=== PATIENT | female | born 1990 | race Caucasian/White ===

== ENCOUNTER 2018-11-23 21:06 | Inpatient (IN) | payer BC ==
[2018-11-23] MEDS ORDERED: Bupivacaine 0.25% 10 ML SDV ONE (22:00)
[2018-11-23] MEDS ORDERED: diphenhydrAMINE 50 MG/ML SDV IVPUSH PRN (22:24)
[2018-11-23] MEDS ORDERED: fentaNYL/Bupivacaine-NS 2 MCG/ML-0.125%/PF 100 ML Bag EPIDUR PRN (22:24)
[2018-11-23] MEDS ORDERED: ePHEDrine 50 MG/ML SDV IVPUSH PRN (22:24)
[2018-11-23] MEDS ORDERED: fentaNYL 100 MCG/2 ML SDV EPIDUR PRN (22:24)
[2018-11-23] MEDS ORDERED: Ondansetron 4 MG/2 ML SDV IVPUSH PRN (22:24)
[2018-11-23] MEDS ORDERED: Nalbuphine 20 MG/ML 1 ML Syringe IVPUSH PRN (22:25)
[2018-11-23] MEDS ORDERED: Sodium Chloride 0.9% 10 ML Syringe FLUSH PRN (22:25)
[2018-11-23] MEDS ORDERED: Oxytocin/Lactated Ringers 10 UNIT/1,000 ML BAG IV SCH ×2 (22:30)
[2018-11-23] MEDS: Lactated Ringers 1,000 ML IV SCH ×3 (22:46→23:38)
--- NOTE | 2018-11-23 23:17 | PCM.PREANE ---
Preanesthetic Assessment - Anesthesia/Transfusion/Family Hx Anesthesia History: Prior Anesthesia Without Reaction Family History of Anesthesia Reaction: No Transfusion History: No Prior Transfusion(s) - Review of Systems General: No Symptoms Pulmonary: No Symptoms Cardiovascular: No Symptoms Gastrointestinal: No Symptoms Neurological: No Symptoms Other: Reports: None - Physical Assessment Pulse: 95 O2 Sat by Pulse Oximetry: 98 Respiratory Rate: 16 Blood Pressure: 128/64 Temperature: 35.1 C Height: 1.78 m Weight: 77.519 kg ASA Class: 2 Mental Status: Alert & Oriented x3 Airway Class: Mallampati = 1 Dentition: Reports: Normal Dentition Thyro-Mental Finger Breadths: 3 Mouth Opening Finger Breadths: 3 ROM/Head Extension: Full Lungs: Clear to Auscultation, Normal Respiratory Effort Cardiovascular: Regular Rate, Regular Rhythm - Lab Values: Laboratory Last Values WBC 12.78 K/mm3 (3.98-10.04) H 11/23/18 22:35 RBC 3.18 M/mm3 (3.98-5.22) L 11/23/18 22:35 Hgb 8.4 gm/L (11.2-15.7) L D 11/23/18 22:35 Hct 26.2 % (34.1-44.9) L 11/23/18 22:35 MCV 82.4 fl (79.4-94.8) 11/23/18 22:35 MCH 26.4 pg (25.6-32.2) 11/23/18 22:35 MCHC 32.1 g/dl (32.2-35.5) L 11/23/18 22:35 RDW Std Deviation 41.8 fL (36.4-46.3) 11/23/18 22:35 Plt Count 238 K/mm3 (182-369) 11/23/18 22:35 MPV 11.0 fl (9.4-12.3) 11/23/18 22:35 Neut % (Auto) 69.4 % (34.0-71.1) 11/23/18 22:35 Lymph % (Auto) 19.6 % (19.3-51.7) 11/23/18 22:35 [place] % (Auto) 8.8 % (4.7-12.5) 11/23/18 22:35 Eos % (Auto) 1.7 (0.7-5.8) 11/23/18 22:35 Baso % (Auto) 0.2 % (0.1-1.2) 11/23/18 22:35 Neut # (Auto) 8.86 K/mm3 (1.56-6.13) H 11/23/18 22:35 Lymph # (Auto) 2.51 K/mm3 (1.18-3.74) 11/23/18 22:35 [place] # (Auto) 1.12 K/mm3 (0.24-0.36) H 11/23/18 22:35 Eos # (Auto) 0.22 K/mm3 (0.04-0.36) 11/23/18 22:35 Baso # (Auto) 0.03 K/mm3 (0.01-0.08) 11/23/18 22:35 - Allergies Allergies/Adverse Reactions: Allergies Allergy/AdvReac Type Severity Reaction Status Date / Time No Known Allergies Allergy Verified 01/07/16 05:52 - Acknowledgements Anesthesia Type Planned: Epidural Pt an Appropriate Candidate for the Planned Anesthesia: Yes Alternatives and Risks of Anesthesia Discussed w Pt/Guardian: Yes Pt/Guardian Understands and Agrees with Anesthesia Plan: Yes PreAnesthesia Questionnaire - Past Health History Medical/Surgical History: Denies Medical/Surgical History Other OB/BYN History: herpes, pt taking acyclovir. no current outbreak. - Infectious Disease History Infectious Disease History: Reports: Herpes - HOME MEDS Home Medications: Home Meds Acyclovir 400 mg PO TID 01/07/16 [History] Vit 90/Iron Fum/Folic [ Formula] 1 tab PO DAILY 01/07/16 [ History] - CURRENT (IN HOUSE) MEDS Current Meds: Current Medications Diphenhydramine HCl (Benadryl) 25 mg IVPUSH Q6H PRN PRN Reason: Pruritis Ephedrine Sulfate (Ephedrine Sulfate) 5 mg IVPUSH ASDIRECTED PRN PRN Reason: Hypotension Fentanyl (Sublimaze) 100 mcg EPIDUR ONETIME PRN PRN Reason: Pain Last Admin: 11/23/18 23:13 Dose: 100 mcg Fentanyl/Bupivacaine HCl (Jlpdgqyy-Rdbsp-Kz 2 Mcg/Ml-0.125%) 100 ml EPIDUR ASDIRECTED PRN PRN Reason: Pain (severe 7-10) Last Admin: 11/23/18 23:14 Dose: 100 ml Lactated Ringer's (Ringers, Lactated) 1,000 mls @ 100 mls/hr IV ASDIRECTED GUERITA Last Admin: 11/23/18 22:52 Dose: 100 mls/hr Oxytocin/Lactated Ringer's (Pitocin In Lr 10 Units/1,000 Ml) 10 unit in 1,000 mls @ 12 mls/hr IV TITRATE GUERITA; Protocol Oxytocin/Lactated Ringer's (Pitocin In Lr 10 Units/1,000 Ml) 10 unit in 1,000 mls @ 500 mls/hr IV .CONTINUOUS GUERITA Nalbuphine HCl (Nubain) 10 mg IVPUSH Q2H PRN PRN Reason: pain Ondansetron HCl (Zofran) 4 mg IVPUSH ONETIME PRN PRN Reason: Nausea/Vomiting Sodium Chloride (Saline Flush) 10 ml FLUSH ASDIRECTED PRN PRN Reason: Keep Vein Open
--- NOTE | 2018-11-24 03:04 | PCM.LDHP ---
L&D History of Present Illness - General Date of Service: 11/23/18 Admit Problem/Dx: Patient Status Order with Admit Dx/Problem 11/23/18 22:25 Patient Status [ADT] Routine Admission Diagnosis/Problem Admission Diagnosis/Problem Source of Information: Patient History Limitations: Reports: No Limitations - History of Present Illness Pain Score: 7 Improves with: Reports: None Worsens with: Reports: None Associated Symptoms: Reports: N - Related Data Allergies/Adverse Reactions: Allergies Allergy/AdvReac Type Severity Reaction Status Date / Time No Known Allergies Allergy Verified 01/07/16 05:52 Home Medications: Home Meds Acyclovir 400 mg PO TID 01/07/16 [History] Vit 90/Iron Fum/Folic [ Formula] 1 tab PO DAILY 01/07/16 [ History] Past Medical History - Past Health History Medical/Surgical History: Denies Medical/Surgical History Cardiovascular History: Reports: High Cholesterol 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 no current outbreak. Psychiatric History: Reports: Anxiety Other Psychiatric History: takes fluoxitine PRN Hematologic History: Reports: Anemia - Infectious Disease History Infectious Disease History: Reports: Herpes - Past Surgical History Other HEENT Surgeries/Procedures: wears glasses Social & Family History - Family History Family Medical History: Noncontributory - Tobacco Use Smoking Status *Q: Never Smoker Second Hand Smoke Exposure: No - Recreational Drug Use Recreational Drug Use: No H&P Review of Systems - Review of Systems: Review Of Systems: See Below General: Reports: No Symptoms HEENT: Reports: No Symptoms Pulmonary: Reports: No Symptoms Cardiovascular: Reports: No Symptoms Gastrointestinal: Reports: No Symptoms Genitourinary: Reports: No Symptoms Musculoskeletal: Reports: No Symptoms Skin: Reports: No Symptoms Psychiatric: Reports: No Symptoms Neurological: Reports: No Symptoms Hematologic/Lymphatic: Reports: No Symptoms Immunologic: Reports: No Symptoms L&D Exam - Exam Exam: See Below - Vital Signs Vital Signs: Last Vital Signs Temp 35.1 C L 11/23/18 23:17 Pulse 95 11/23/18 23:17 Resp 16 11/23/18 23:17 BP 128/64 11/23/18 23:17 Pulse Ox 98 11/23/18 23:17 Weight: 77.519 kg - OB Specific Contraction Intensity: Moderate to Strong Movement: Active Heart Tones: Present Heart Rate (FHR) Variability: Moderate (6-25 bmp) Presentation: Vertex - Toussaint Score Toussaint Score Cervix Position: Anterior Toussaint Score Consistency: Soft Toussaint Score Effacement: >80% Toussaint Score Dilation: > 5 cm Toussaint Score 's Station: -2 Toussaint Score Total: 11 - Exam General: Alert, Oriented HEENT: PERRLA, Conjunctiva Clear, EACs Clear, EOMI, Hearing Intact, Mucosa Moist & [place], Nares Patent, Normal Nasal Septum, Posterior Pharynx Clear, TMs Clear Neck: Supple, Trachea Midline Lungs: Clear to Auscultation, Normal Respiratory Effort Cardiovascular: Regular Rate, Regular Rhythm GI/Abdominal Exam: Normal Bowel Sounds, Soft, Non-Tender, No Organomegaly, No Distention, No Abnormal Bruit, No Mass, Pelvis Stable Rectal Exam: Normal Exam, Normal Rectal Tone Genitourinary: Normal external exam, Normal bimanual exam, Normal speculum exam Back Exam: Normal Inspection, Full Range of Motion Extremities: Normal Inspection, Normal Range of Motion, Non-Tender, No Pedal Edema, Normal Capillary Refill Neurological: Cranial Nerves Intact, Reflexes Equal Bilateral Psychiatric: Alert, Normal Affect, Normal Mood - Patient Data Lab Results Last 24 hrs: Laboratory Results - last 24 hr 11/23/18 Range/Units 22:35 WBC 12.78 H (3.98-10.04) K/mm3 RBC 3.18 L (3.98-5.22) M/mm3 Hgb 8.4 L D (11.2-15.7) gm/L Hct 26.2 L (34.1-44.9) % MCV 82.4 (79.4-94.8) fl MCH 26.4 (25.6-32.2) pg MCHC 32.1 L (32.2-35.5) g/dl RDW Std Deviation 41.8 (36.4-46.3) fL Plt Count 238 (182-369) K/mm3 MPV 11.0 (9.4-12.3) fl Neut % (Auto) 69.4 (34.0-71.1) % Lymph % (Auto) 19.6 (19.3-51.7) % [place] % (Auto) 8.8 (4.7-12.5) % Eos % (Auto) 1.7 (0.7-5.8) Baso % (Auto) 0.2 (0.1-1.2) % Neut # (Auto) 8.86 H (1.56-6.13) K/mm3 Lymph # (Auto) 2.51 (1.18-3.74) K/mm3 [place] # (Auto) 1.12 H (0.24-0.36) K/mm3 Eos # (Auto) 0.22 (0.04-0.36) K/mm3 Baso # (Auto) 0.03 (0.01-0.08) K/mm3 Result Diagrams: 11/23/18 22:35 Problem List Initiated/Reviewed/Updated: Yes Orders Last 24hrs: Active Orders 24 hr Category Date Time Status Patient Status [ADT] Routine ADT 11/23/18 22:25 Active Activity as Tolerated [RC] PFP Care 11/23/18 22:25 Active Communication Order [RC] ASDIRECTED Care 11/23/18 22:25 Active Heart Tones [RC] ASDIRECTED Care 11/23/18 22:26 Active Non Stress Test [RC] PER UNIT ROUTINE Care 11/23/18 22:25 Active Notify Provider [RC] ASDIRECTED Care 11/23/18 22:24 Active Notify Provider [RC] PFP Care 11/23/18 22:25 Active Notify Provider [RC] PRN Care 11/23/18 22:25 Active Peripheral IV Care [RC] . DIRECTED Care 11/23/18 22:26 Active Vital Signs [RC] PER UNIT ROUTINE Care 11/23/18 22:25 Active Regular Diet [DIET] Diet 11/24/18 Breakfast Active RAPID PLASMA REAGIN,RPR [CHEM] Routine Lab 11/23/18 22:25 Received Lactated Ringers [Ringers, Lactated] 1,000 ml Med 11/23/18 22:30 Active IV ASDIRECTED Nalbuphine [Nubain] Med 11/23/18 22:25 Active 10 mg IVPUSH Q2H PRN Ondansetron [Zofran] Med 11/23/18 22:24 Active 4 mg IVPUSH ONETIME PRN Oxytocin/Lactated Ringers [Pitocin in LR 10 Units/1,000 Med 11/23/18 22:30 Active ML] 10 unit in 1,000 ml IV .CONTINUOUS Oxytocin/Lactated Ringers [Pitocin in LR 10 Units/1,000 Med 11/23/18 22:30 Active ML] 10 unit in 1,000 ml IV TITRATE Sodium Chloride 0.9% [Saline Flush] Med 11/23/18 22:25 Active 10 ml FLUSH ASDIRECTED PRN diphenhydrAMINE [Benadryl] Med 11/23/18 22:24 Active 25 mg IVPUSH Q6H PRN ePHEDrine [ePHEDrine sulfate] Med 11/23/18 22:24 Active 5 mg IVPUSH ASDIRECTED PRN fentaNYL [Sublimaze] Med 11/23/18 22:24 Active 100 mcg EPIDUR ONETIME PRN fentaNYL/Bupivacaine/NS/PF [jrbpoQTF-Hrcfo-TF 2 MCG/ML- Med 11/23/18 22:24 Active 0.125%] 100 ml EPIDUR ASDIRECTED PRN Electronic Heart Tones Ext w TOCO [WOMSER] Oth 11/23/18 22:25 Ordered Routine Electronic Heart Tones Internal [WOMSER] Per Unit Ot 11/23/18 22:25 Ordered Routine Peripheral IV Insertion Adult [OM.PC] Routine Oth 11/23/18 22:25 Ordered Resuscitation Status Routine Resus Stat 11/23/18 22:25 Ordered Medication Orders Diphenhydramine HCl (Benadryl) 25 mg IVPUSH Q6H PRN PRN Reason: Pruritis Ephedrine Sulfate (Ephedrine Sulfate) 5 mg IVPUSH ASDIRECTED PRN PRN Reason: Hypotension Fentanyl (Sublimaze) 100 mcg EPIDUR ONETIME PRN PRN Reason: Pain Last Admin: 11/23/18 23:13 Dose: 100 mcg Fentanyl/Bupivacaine HCl (Yqatqujl-Lfrcy-Ax 2 Mcg/Ml-0.125%) 100 ml EPIDUR ASDIRECTED PRN PRN Reason: Pain (severe 7-10) Last Admin: 11/23/18 23:14 Dose: 100 ml Lactated Ringer's (Ringers, Lactated) 1,000 mls @ 100 mls/hr IV ASDIRECTED GUERITA Last Admin: 11/23/18 23:38 Dose: 100 mls/hr Infusion: 11/23/18 23:38 Dose: 100 mls/hr Admin: 11/23/18 22:52 Dose: 100 mls/hr Infusion: 11/23/18 22:52 Dose: 100 mls/hr Admin: 11/23/18 22:46 Dose: 100 mls/hr Oxytocin/Lactated Ringer's (Pitocin In Lr 10 Units/1,000 Ml) 10 unit in 1,000 mls @ 12 mls/hr IV TITRATE GUERITA; Protocol Oxytocin/Lactated Ringer's (Pitocin In Lr 10 Units/1,000 Ml) 10 unit in 1,000 mls @ 500 mls/hr IV .CONTINUOUS GUERITA Last Admin: 11/24/18 02:48 Dose: 500 mls/hr Nalbuphine HCl (Nubain) 10 mg IVPUSH Q2H PRN PRN Reason: pain Ondansetron HCl (Zofran) 4 mg IVPUSH ONETIME PRN PRN Reason: Nausea/Vomiting Sodium Chloride (Saline Flush) 10 ml FLUSH ASDIRECTED PRN PRN Reason: Keep Vein Open Assessment/Plan Comment:: 28 year old here in active labor. PNC with myself without significant complications.
--- NOTE | 2018-11-24 03:07 | PCM.SN ---
- Free Text/Narrative Note: Stage I - Patient presented in active labor. AROM clear fluid. Progressed nicely to complete with overall reassuring FHT. Epidural anesthesia. Stage II - of viable female. Weight 8#. 7/9 APGARS at 0240. Head delivered in controlled manner over small 1st degree laceration. Body and shoulders followed without difficulty. Baby to maternal abdomen and awaiting nurse. Cord clamped and cut. Stage III - of intact placenta. 3vc. Small 1st degree repaired with 3-0 vicryl. EBL 150.
[2018-11-24] MEDS ORDERED: Lanolin 100% Cream 7 GM Tube TOP PRN (04:52)
[2018-11-24] MEDS ORDERED: Docusate Sodium 100 MG Cap PO PRN (04:52)
[2018-11-24] MEDS ORDERED: Witch Hazel Medicated Pads 40/Jar TOP PRN (04:52)
[2018-11-24] MEDS ORDERED: Benzocaine/Menthol 20%-0.5% Spray 56 GM Canister TOP PRN (04:52)
[2018-11-24] MEDS: Ibuprofen 600 MG Tab PO PRN ×3 (05:22→20:03)
--- NOTE | 2018-11-24 07:44 | PCM48HPAN ---
Post Anesthesia Note - EVALUATION WITHIN 48HRS OF ANESTHETIC Vital Signs in Normal Range: Yes Patient Participated in Evaluation: Yes Respiratory Function Stable: Yes Airway Patent: Yes Cardiovascular Function Stable: Yes Hydration Status Stable: Yes Pain Control Satisfactory: Yes Nausea and Vomiting Control Satisfactory: Yes Mental Status Recovered: Yes Pulse Rate: 95 Resp Rate: 16 Temperature: 35.1 C Blood Pressure: 128/64 - COMMENTS/OBSERVATIONS Free Text/Narrative:: no anesthesia complications noted
[2018-11-25] MEDS: Ibuprofen 600 MG Tab PO PRN (08:56)
[2018-11-25 10:00] VITALS: BP 107/61
[2018-11-25] MEDS ORDERED: Acetaminophen/Butalbital/Caffeine 325-50-40 MG Tab PO PRN (10:13)
--- NOTE | 2018-11-25 11:50 | PCM.DCSUM1 ---
Discharge Summary - Hospital Course Free Text/Narrative:: 2 para 1001 white female admitted to the hospital in active labor. care with Dr. Colon. She progressed to complete cervical dilation as outlined below. Stage I - Patient presented in active labor. AROM clear fluid. Progressed nicely to complete with overall reassuring FHT. Epidural anesthesia. Stage II - of viable female. Weight 8#. 7/9 APGARS at 0240. Head delivered in controlled manner over small 1st degree laceration. Body and shoulders followed without difficulty. Baby to maternal abdomen and awaiting nurse. Cord clamped and cut. Stage III - of intact placenta. 3vc. Small 1st degree repaired with 3-0 vicryl. EBL 150. patient is done well. She is nursing without problems. She is ambulating well, has minimal lochia and is voiding without concerns. She is desiring discharge home. Diagnosis: Stroke: No - Discharge Data Discharge Date: 11/25/18 Discharge Disposition: Home, Self-Care 01 Condition: Good - Patient Instructions Diet: Regular Diet as Tolerated (Nursing diet with increased calories and calcium is recommended) Activity: As Tolerated (No intercourse or tampons until bleeding resolves) Driving: May Drive Today (.) Showering/Bathing: May Shower Notify Provider of: Fever, Increased Pain, Swelling and Redness, Nausea and/or Vomiting - Discharge Plan Home Medications: Home Meds Acyclovir 400 mg PO TID 01/07/16 [History] Vit 90/Iron Fum/Folic [ Formula] 1 tab PO DAILY 01/07/16 [ History] Ibuprofen [Motrin] 600 mg PO Q6H PRN tablet 11/25/18 [Rx] Patient Handouts: Home Care Instructions for Mom Referrals: Julia Skelton MD [Primary Care Provider] - (Return to [facility]-6 weeks.) - Discharge Summary/Plan Comment DC Time >30 min.: No Discharge Summary/Plan Comment: Discharge instructions: 1. Discharge home 2. Diet, activity and follow-up discussed with patient. Recommend nursing diet with increased calories and calcium. 3. Precautions given concern increased pain, bleeding, temperature, signs/ symptoms of DVT/PE. 4. Medications per home medication was printed, discussed with and given to the patient. 5. [facility]. Diagnosis: Term -delivered Condition: Good - Patient Data Vitals - Most Recent: Last Vital Signs Temp 36.9 C 11/25/18 08:47 Pulse 83 11/25/18 08:47 Resp 14 11/25/18 08:47 BP 107/61 11/25/18 08:47 Pulse Ox 92 L 11/25/18 08:47 Weight - Most Recent: 77.519 kg I&O - Last 24 hours: Intake & Output 11/24/18 11/25/18 11/25/18 22:59 06:59 14:59 Intake Total 4 0 Balance 4 0 Lab Results - Last 24 hrs: Laboratory Results - last 24 hr 11/23/18 11/24/18 11/25/18 Range/Units 22:25 09:20 05:58 WBC 10.25 H (3.98-10.04) K/mm3 RBC 3.07 L (3.98-5.22) M/mm3 Hgb 8.0 L (11.2-15.7) gm/L Hct 25.8 L (34.1-44.9) % MCV 84.0 (79.4-94.8) fl MCH 26.1 (25.6-32.2) pg MCHC 31.0 L (32.2-35.5) g/dl RDW Std Deviation 42.1 (36.4-46.3) fL Plt Count 227 (182-369) K/mm3 MPV 11.0 (9.4-12.3) fl Neut % (Auto) 61.7 (34.0-71.1) % Lymph % (Auto) 26.1 (19.3-51.7) % [place] % (Auto) 8.6 (4.7-12.5) % Eos % (Auto) 2.9 (0.7-5.8) Baso % (Auto) 0.4 (0.1-1.2) % Neut # (Auto) 6.32 H (1.56-6.13) K/mm3 Lymph # (Auto) 2.68 (1.18-3.74) K/mm3 [place] # (Auto) 0.88 H (0.24-0.36) K/mm3 Eos # (Auto) 0.30 (0.04-0.36) K/mm3 Baso # (Auto) 0.04 (0.01-0.08) K/mm3 RPR Non-reactive (NONREACTIVE) Blood Type O NEGATIVE Gel Antibody Screen Negative Screen 0 ros/5 flds - neg RhIG Candidate? Yes Rhogam Indicated Yes, baby rh pos H Med Orders - Current: Current Medications Benzocaine/Menthol (Dermoplast Pain Relief [place]) 0 gm TOP ASDIRECTED PRN PRN Reason: Perineal Comfort Measure Last Admin: 11/24/18 05:21 Dose: 1 canister Docusate Sodium (Colace) 100 mg PO BID PRN PRN Reason: Constipation Emollient Ointment (Lansinoh Hpa) 0 gm TOP ASDIRECTED PRN PRN Reason: Sore Nipples Ibuprofen (Motrin) 600 mg PO Q6H PRN PRN Reason: Mild pain or fever Last Admin: 11/25/18 08:56 Dose: 600 mg Witch [place] (Tucks) 1 pad TOP ASDIRECTED PRN PRN Reason: Pain Last Admin: 11/24/18 05:21 Dose: 1 tub Discontinued Medications Bupivacaine HCl (Sensorcaine-Mpf 0.25%) 10 ml .ROUTE .STK-MED ONE Stop: 11/23/18 22:01 Diphenhydramine HCl (Benadryl) 25 mg IVPUSH Q6H PRN PRN Reason: Pruritis Ephedrine Sulfate (Ephedrine Sulfate) 5 mg IVPUSH ASDIRECTED PRN PRN Reason: Hypotension Fentanyl (Sublimaze) 100 mcg EPIDUR ONETIME PRN PRN Reason: Pain Last Admin: 11/23/18 23:13 Dose: 100 mcg Fentanyl/Bupivacaine HCl (Gwzvovbn-Jqdoq-Fj 2 Mcg/Ml-0.125%) 100 ml EPIDUR ASDIRECTED PRN PRN Reason: Pain (severe 7-10) Last Admin: 11/23/18 23:14 Dose: 100 ml Lactated Ringer's (Ringers, Lactated) 1,000 mls @ 100 mls/hr IV ASDIRECTED GUERITA Last Admin: 11/23/18 23:38 Dose: 100 mls/hr Oxytocin/Lactated Ringer's (Pitocin In Lr 10 Units/1,000 Ml) 10 unit in 1,000 mls @ 12 mls/hr IV TITRATE GUERITA; Protocol Oxytocin/Lactated Ringer's (Pitocin In Lr 10 Units/1,000 Ml) 10 unit in 1,000 mls @ 500 mls/hr IV .CONTINUOUS GUERITA Last Infusion: 11/24/18 05:23 Dose: Infused Nalbuphine HCl (Nubain) 10 mg IVPUSH Q2H PRN PRN Reason: pain Ondansetron HCl (Zofran) 4 mg IVPUSH ONETIME PRN PRN Reason: Nausea/Vomiting Sodium Chloride (Saline Flush) 10 ml FLUSH ASDIRECTED PRN PRN Reason: Keep Vein Open
== END 2018-11-25 13:20 | disposition home or self-care (01) | DRG 560 ==
LOC: JD.OBCHECK 21:06 → JD.OB 21:06 → JD.OBCHECK 22:24 → JD.OB 22:25 → OBSVTOIN 11-24 02:40 → JD.OB 11-24 02:41
PROVIDERS: ADMIT Obstetrics & Gynecology; ATTEND Obstetrics & Gynecology
PROC: 3E0R3BZ Introduction of Anesthetic Agent into Spinal Canal, Percutaneous Approach (ICD-10-PCS; 2018-11-23)
PROC: 00HU33Z Insertion of Infusion Device into Spinal Canal, Percutaneous Approach (ICD-10-PCS; 2018-11-23)
PROC: 10E0XZZ Delivery of Products of Conception, External Approach (ICD-10-PCS; principal; 2018-11-24)
PROC: 0HQ9XZZ Repair Perineum Skin, External Approach (ICD-10-PCS; principal; 2018-11-24)
PROC: 10907ZC Drainage of Amniotic Fluid, Therapeutic from Products of Conception, Via Natural or Artificial Opening (ICD-10-PCS; principal; 2018-11-24)
PROC: 3E0234Z Introduction of Serum, Toxoid and Vaccine into Muscle, Percutaneous Approach (ICD-10-PCS; 2018-11-24)
DX: O98.32 Other infections with a predominantly sexual mode of transmission complicating childbirth (principal); A60.00 Herpesviral infection of urogenital system, unspecified; O99.344 Other mental disorders complicating childbirth; F41.9 Anxiety disorder, unspecified; O70.0 First degree perineal laceration during delivery; O99.284 Endocrine, nutritional and metabolic diseases complicating childbirth; E78.00 Pure hypercholesterolemia, unspecified; O99.02 Anemia complicating childbirth; D64.9 Anemia, unspecified; Z37.0 Single live birth; O26.893 Other specified pregnancy related conditions, third trimester; Z67.41 Type O blood, Rh negative
CPT/HCPCS: 36415; 36430; 51702; 59025; 59409; 85025; 85461; 86592; 86850; 86900; 86901; A9270-GY; J2590; J2790; J3010; J3490; J7120